=== PATIENT | male | born 1945 | race Caucasian/White ===

== ENCOUNTER 2020-10-25 20:52 | Inpatient (IN) | payer OTHER ==
[~2020-10-25] VITALS: Ht 172.7 cm; Wt 68.0 kg
[2020-10-25 21:30] LABS: HEMOGLOBIN 12.2 gm/dl (14.0-17.5); RED BLOOD COUNT 4.19 M/UL (4.20-5.50); WHITE BLOOD COUNT 8.5 K/UL (4.5-11.0)
[2020-10-25 21:40] LABS: BUN/CREATININE RATIO 30 (0-10)
[2020-10-26] MEDS ORDERED: XOPENEX1.25 MG/3 INH (00:16)
[2020-10-26] MEDS ORDERED: ZITHROMAX250 MG PO (00:16)
[2020-10-26] MEDS ORDERED: PREDNISONE10 M1 PO (00:18)
[2020-10-26] MEDS ORDERED: DIMAPHEN DM EL118 ML PO (00:18)
[2020-10-26] MEDS ORDERED: LISINOPRIL40 MG PO (00:19)
[2020-10-26] MEDS ORDERED: MUCUS RELIEF400 MG PO (00:19)
[2020-10-26] MEDS ORDERED: VITAMIN D350 MC3 PO (00:20)
[2020-10-26] MEDS ORDERED: MULTI-VITAMIN1 EACH PO (00:20)
[2020-10-26] MEDS ORDERED: HYDROCHLOROTHIA25 MG PO (00:22)
[2020-10-26 06:20] LABS: HEMOGLOBIN 11.6 gm/dl (14.0-17.5); RED BLOOD COUNT 3.98 M/UL (4.20-5.50); WHITE BLOOD COUNT 6.6 K/UL (4.5-11.0)
[2020-10-26 06:34] LABS: BUN/CREATININE RATIO 24 (0-10)
[2020-10-28 05:18] LABS: BUN/CREATININE RATIO 36 (0-10)
[2020-10-28 05:28] LABS: HEMOGLOBIN 12.3 gm/dl (14.0-17.5); RED BLOOD COUNT 4.29 M/UL (4.20-5.50)
[2020-10-29 04:16] LABS: HEMOGLOBIN 12.5 gm/dl (14.0-17.5); RED BLOOD COUNT 4.29 M/UL (4.20-5.50); WHITE BLOOD COUNT 5.2 K/UL (4.5-11.0)
[2020-10-29 04:47] LABS: BUN/CREATININE RATIO 39 (0-10)
[2020-10-30 03:31] LABS: RED BLOOD COUNT 4.47 M/UL (4.20-5.50); WHITE BLOOD COUNT 6.3 K/UL (4.5-11.0)
[2020-10-30 03:45] LABS: BUN/CREATININE RATIO 40 (0-10)
--- NOTE | 2020-10-30 10:18 | NUR ---
PT S OXYGEN LEVEL AT REST SITTING ON SIDE OF BED IS 87% ON ROOM AIR NOTED
[2020-10-30] MEDS ORDERED: OMNICEF 300 MG300 MG PO (10:33)
[2020-10-30] MEDS ORDERED: LOPRESSOR 25 MG25 MG PO (10:33)
[2020-10-30] MEDS ORDERED: DECADRON6 MG PO (10:33)
[2020-10-30] MEDS ORDERED: AMLODIPINE BESYL5 MG PO (10:33)
== END 2020-10-30 19:42 | disposition home or self-care (01) | DRG 177 ==
LOC: ER1 20:52 → CDU 22:39 → MED SURG 4 22:39
PROVIDERS: Internal Medicine; Internal Medicine Infectious Disease; Physician Assistant Medical; ADMIT Internal Medicine
PROC: 8E0ZXY6 Isolation (ICD-10-PCS; principal; 2020-10-25)
PROC: XW033E5 Introduction of Remdesivir Anti-infective into Peripheral Vein, Percutaneous Approach, New Technology Group 5 (ICD-10-PCS; 2020-10-25)
PROC: XW13325 Transfusion of Convalescent Plasma (Nonautologous) into Peripheral Vein, Percutaneous Approach, New Technology Group 5 (ICD-10-PCS; 2020-10-26)
DX: U07.1 COVID-19 (principal); J12.82 Pneumonia due to coronavirus disease 2019; J96.01 Acute respiratory failure with hypoxia; I69.859 Hemiplegia and hemiparesis following other cerebrovascular disease affecting unspecified side; I10 Essential (primary) hypertension; Z86.12 Personal history of poliomyelitis; Z79.899 Other long term (current) drug therapy
CPT/HCPCS: 36415; 36600; 71045; 80048; 80053; 82803; 82962; 83605; 84484; 85025; 85027; 86900; 86901; 86927; 87040; 93005; 94760; 96365; 96375; 97162; 99285; J0696; J1100; J1650; J7030; J7050

== ENCOUNTER → 2020-11-19 | Outpatient (CLI) | payer OTHER ==
[~2020-11-19] MED LIST: AMLODIPINE BESYL5 MG PO; DECADRON6 MG PO; DIMAPHEN DM EL118 ML PO; HYDROCHLOROTHIA25 MG PO; LISINOPRIL40 MG PO; LOPRESSOR 25 MG25 MG PO; MUCUS RELIEF400 MG PO; MULTI-VITAMIN1 EACH PO; OMNICEF 300 MG300 MG PO; PREDNISONE10 M1 PO; VITAMIN D350 MC3 PO; XOPENEX1.25 MG/3 INH; ZITHROMAX250 MG PO
== END ==
LOC: RAD 16:37
DX: J18.9 Pneumonia, unspecified organism (principal); R91.8 Other nonspecific abnormal finding of lung field
CPT/HCPCS: 71046

== ENCOUNTER 2021-04-22 16:59 | Emergency (ER) | payer OTHER | END 2021-04-22 18:20 | disposition home or self-care (01) | LOC: ER1 16:59 | DX: S20.212A Contusion of left front wall of thorax, initial encounter (principal); I10 Essential (primary) hypertension; V49.40XA Driver injured in collision with unspecified motor vehicles in traffic accident, initial encounter; Y92.410 Unspecified street and highway as the place of occurrence of the external cause | CPT/HCPCS: 71045; 72170; 99283 ==